=== PATIENT | male | born 1950 | race Caucasian/White ===

== ENCOUNTER 2017-09-16 07:00 | Day surgery (SDC) ==
[2014-02-07 15:49] VITALS: BMI 36.9
[2017-09-16] MEDS ORDERED: LIDOCAINE 1% 20 ML MDV ID STA (07:49)
[2017-09-16] MEDS ORDERED: VERSED ONE (08:45)
[2017-09-16] MEDS ORDERED: DIPRIVAN 20 ML VIAL IVP ONE (08:45)
[2017-09-17 12:17] VITALS: BP 112/65; TEMP 97.5
--- NOTE | 2017-09-17 13:09 | OP ---
INDICATIONS FOR PROCEDURE: 66 year old gentleman presents for colonoscopy exam. He has a history of adenomatous polyps with his last colonoscopy three years ago. He has an incidentally has occasional diarrhea. MEDICATIONS: SEE ANESTHESIA NOTES. PROCEDURE: COLONOSCOPY. REPORT: The risks, benefits, alternatives and limitations were discussed in detail with the patient. Informed consent was obtained. After adequate sedation was achieved, a digital rectal exam revealed good tone, no masses. The colonoscope was introduced into the rectum and advanced under direct visual guidance to the cecum. The cecum was identified by the appendiceal orifice and IC valve. I then slowly withdrew the scope in circumferential manner and examined the mucosa quite carefully. I looked on the proximal and distal sides of the folds and flexures as best as possible. I was able to retroflex the scope in the right colon and the left colon to increase visualization. As I withdrew the scope I noted no abnormalities throughout the entire length of his colon. The scope was retroflexed to look at the anal canal as well. No other abnormalities were noted there. The prep was good in the right colon and the sigmoid and rectum there was some solid stool particles still present and I was able to wash and rinse those away as best as possible to get a decent look to rule out polyps greater or equal to 6mm. The patient tolerated the procedure well with stable vital signs and pulse oximetry throughout. The withdraw time was 7 minutes and 24 seconds. IMPRESSION: 1. Normal colonoscopy exam RECOMMENDATIONS: 1. High fiber diet, suggested daily fiber supplement 2. Office visit as needed 3. Colonoscopy examination again in 5 years or sooner if there are signs or symptoms to indicate otherwise CC: Dr. Rodney ANGEL
== END 2017-09-16 10:00 | disposition home or self-care (01) ==
LOC: SURG 07:00
PROVIDERS: ATTEND Internal Medicine Gastroenterology
DX: Z09 Encounter for follow-up examination after completed treatment for conditions other than malignant neoplasm (principal); Z86.010 Personal history of colon polyps; R19.7 Diarrhea, unspecified; E11.9 Type 2 diabetes mellitus without complications
CPT/HCPCS: 82962